=== PATIENT | female | born 1985 ===

== ENCOUNTER 2020-10-12 18:35 | Emergency (ER) | payer OTHER, SELFPAY ==
[2020-10-12 19:09] VITALS: BP 119/70; BP 123/73; PULSE 110; PULSE 93; RESP 16; TEMP 37.1; O2SAT 100; O2SAT 99; BMI 30.2
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
== END 2020-10-12 19:55 | disposition home or self-care (01) ==
PROVIDERS: Emergency Provider Emergency Medicine
DX: S16.1XXA Strain of muscle, fascia and tendon at neck level, initial encounter (principal); V43.52XA Car driver injured in collision with other type car in traffic accident, initial encounter; Y93.89 Activity, other specified; Y92.414 Local residential or business street as the place of occurrence of the external cause; Y99.9 Unspecified external cause status
CPT/HCPCS: 99283

== ENCOUNTER 2021-03-18 11:14 | Outpatient (REF) | payer OTHER, SELFPAY ==
[2021-03-18 11:28] LABS: MANUAL DIFF FLAG NO
[2021-03-18 12:31] LABS: Basophils Percent Auto 0.6 % (0-2); Eosinophils Absolute Auto 0.2 X10*3/uL (0.0-0.4); Eosinophils Percent Auto 3.3 % (0-4); Hematocrit 40.5 % (37.0-47.0); Hemoglobin 13.1 g/dl (12.0-16.0); Imm Gran Abs Auto 0.02 X10*3/uL (0.00-0.03); Imm Gran Pct Auto 0.3 % (0.0-0.4); Lymphocytes Absolute Auto 2.4 X10*3/uL (1.2-4.9); Lymphocytes Percent Auto 35.8 % (20-40); Mean Corpuscular HGB Conc 32.3 g/dl (31.0-35.0); Mean Corpuscular Hemoglobin 29.2 pg (27.0-33.0); Mean Corpuscular Volume 90.2 fL (80.0-98.0); Mean Platelet Volume 10.3 fL (9.4-12.3); Monocytes Absolute Auto 0.5 X10*3/uL (0.1-1.2); Monocytes Percent Auto 7.2 % (2-11); Neutrophils Absolute Auto 3.5 x10*3/uL (2.0-8.3); Neutrophils Percent Auto 52.8 % (45-73); Platelet Count 335 X10*3/uL (160-400); Red Blood Count 4.49 X10*6/uL (4.20-5.50); Red Cell Distribution Width 12.6 % (11.0-16.0); White Blood Count 6.7 X10*3/uL (4.8-10.8)
[2021-03-18 13:10] LABS: Alanine Aminotransferase 18 U/L (0-31); Albumin Level 4.5 g/dL (3.5-5.0); Alkaline Phosphatase 71 U/L (39-117); Anion Gap 15 (12-20); Aspartate Amino Transferase 17 U/L (5-31); Bilirubin Total 0.3 mg/dL (0.0-1.0); Blood Urea Nitrogen 8 mg/dL (9-16); Calcium 9.5 mg/dL (8.4-10.2); Carbon Dioxide 23 mmol/L (22-29); Chloride 107 mmol/L (96-108); Cholesterol 246 mg/dL; Estimated Glomerular Filt Rate > 60; Glucose Random 92 mg/dL (60-115); HDL Cholesterol 49 mg/dL; LDL Cholesterol Calculated 173 mg/dl; Potassium 4.6 mmol/L (3.3-5.1); Sodium 140 mmol/L (135-145); Total Protein 7.9 g/dL (6.5-8.0); Triglycerides 121 mg/dL
[2021-03-18 13:22] LABS: Thyroid Stimulating Hormone 1.48 uIU/mL (0.32-4.0)
== END 2021-03-18 11:15 | disposition home or self-care (01) ==
LOC: HO.LAB 11:14
PROVIDERS: PCP Internal Medicine; Visit Provider Internal Medicine
DX: Z00.00 Encounter for general adult medical examination without abnormal findings (principal); Z13.31 Encounter for screening for depression; K59.00 Constipation, unspecified; R63.5 Abnormal weight gain
CPT/HCPCS: 36415; 80053; 80061; 84443; 85025

== ENCOUNTER 2021-05-16 09:48 | Outpatient (REF) | payer OTHER, SELFPAY ==
[2021-05-16 16:52] LABS: CT PCR NOT DETECTED (Not Detect.); NG PCR NOT DETECTED (Not Detect.)
[2021-05-17 14:19] LABS: BV Int Neg Control Negative (Negative); BV Int Pos Control Positive (Positive)
[2021-05-21 16:42] LABS: HPV mRNA E6/E7 rflx Not Detected (Not Detected)
== END 2021-05-16 09:49 | disposition home or self-care (01) ==
LOC: HO.LAB 09:48
PROVIDERS: PCP Internal Medicine; Visit Provider Advanced Practice Midwife
DX: Z01.411 Encounter for gynecological examination (general) (routine) with abnormal findings (principal); Z11.51 Encounter for screening for human papillomavirus (HPV); R10.2 Pelvic and perineal pain; Z20.2 Contact with and (suspected) exposure to infections with a predominantly sexual mode of transmission
CPT/HCPCS: 87480; 87491; 87510; 87591; 87624; 87660; 88142

== ENCOUNTER 2023-06-18 09:12 | Outpatient (REF) | payer OTHER, SELFPAY ==
[2023-06-18 12:24] LABS: CT PCR NOT DETECTED (Not Detect.); NG PCR NOT DETECTED (Not Detect.)
[2023-06-19 13:08] LABS: BV Int Neg Control Negative (Negative); BV Int Pos Control Positive (Positive)
== END 2023-06-18 09:13 | disposition home or self-care (01) ==
LOC: HO.LNP 09:12
PROVIDERS: PCP Internal Medicine; Visit Provider Advanced Practice Midwife
DX: R10.2 Pelvic and perineal pain (principal); R31.29 Other microscopic hematuria; N89.8 Other specified noninflammatory disorders of vagina; R30.0 Dysuria
CPT/HCPCS: 0353U; 81002; 81025; 87086; 87480; 87510; 87660; 99212

== ENCOUNTER 2023-06-18 09:12 | Outpatient (AMB) | payer OTHER, SELFPAY ==
--- NOTE | 2023-06-18 09:16 | MHC.OFFVIS ---
Vital Signs 06/18/23 09:22 Height 5 ft 2 in Weight 142 lb BMI 26.0 BP 102/60 Intake Visit Reasons: discharge ?/infection Charge Account Authorizer Required: No Information Interpreted: non-clinical & clinical Home Theater Experience Expert: Home Theater Experience Expert Present (Sanjuanita ESCAMILLA) Accompanied by: Self / Same As Patient Allergies No Known Allergies [No Known Allergies*] Allergy (Verified 06/18/23 09:23) Is last menstrual period known: Yes Last menstrual period: 05/28/23 HPI Comments Details: Patient is here today for pain pelvic which begins at the midline and radiates to the left. She reports an increase in discharge and some burning irritation with urination. Currently not sexually active. She is also interested starting control. Seen in [facility] in October for same pain, had a pap and was ordered 3 months of BC, then [facility], she reports she does not have a appointment scheduled for a follow-up there [facility] Medical History (Updated 06/18/23 @ 09:43 by Gladys Ramirez CNM) No known health problems Social History Alcohol intake: current Alcohol intake frequency: holidays/special occasions only Patient Tobacco Use Status: Never used Tobacco Sexual orientation: Straight/Heterosexual Gender identity: Female Female Reproductive History Menstrual Duration of menses: 3-5 days Date of last menstrual period: 05/28/23 Review of Systems Const All systems reviewed & are unremarkable except as noted in HPI and below Physical Exam Vital Signs: Last Vital Signs BP 102/60 06/18/23 09:22 BMI result Body Mass Index 26.0 Const General: cooperative, healthy appearing and no acute distress Orientation/consciousness: patient oriented x3 GI Inspection: Yes normal to inspection Palpation (GI): Soft to palpation and Other GI palpation findings present (Nontender) Rectal Exam - Female: visual inspection normal General: Yes bladder normal to palpation External Female Exam: normal appearance of the urethra Speculum Exam - Vagina: normal appearance of the vagina, normal palpation and normal vaginal discharge Speculum Exam - Cervix: normal appearance of the cervix and normal palpation Bimanual exam- vagina & uterus: normal bimanual exam, normal palpation, uterine size normal, bladder normal to palpation, normal palpation, uterine shape normal and non-tender Bimanual Exam- Adnexa, other: Other (Slightly tender to the left, fullness to the right ? loop of bowel) Neuro General: patient oriented x3 Results AMB Test Urine AMB Test Urine Negative Last Edit by Sanjuanita Albert CMA on 06/18/23 09:49 AMB Urinalysis Dipstick UR Leukocytes Negative Last Edit by Sanjuanita Albert, TRI on 06/18/23 09:51 UR Nitrite Negative Last Edit by Sanjuanita Albert, TRI on 06/18/23 09:51 UR Urobilinogen Normal Last Edit by Sanjuanita Albert, TRI on 06/18/23 09:51 UR Protein Negative Last Edit by Sanjuanita Albert, TRI on 06/18/23 09:51 UR Ph 6.5 Last Edit by Sanjuanita Albert, TRI on 06/18/23 09:51 UR Blood Small Last Edit by Sanjuanita Albert, TRI on 06/18/23 09:51 UR Specific [place] 1.015 Last Edit by Sanjuanita Albert CMA on 06/18/23 09:51 UR Ketone Negative Last Edit by Sanjuanita Albert, TRI on 06/18/23 09:51 UR Bilirubin Negative Last Edit by Sanjuanita Albert, TRI on 06/18/23 09:51 UR Glucose Negative Last Edit by Sanjuanita Albert CMA on 06/18/23 09:51 Assessment & Plan Assessment & Plan (1) Pelvic fullness: Code(s): R19.00 - Intra-abdominal and pelvic swelling, mass and lump, unspecified site Category: Medical (2) Pain in pelvis: Code(s): R10.2 - Pelvic and perineal pain (3) Vaginal discharge: Code(s): N89.8 - Other specified noninflammatory disorders of vagina (4) Dysuria: Code(s): R30.0 - Dysuria Plan Discussed: Workup for pelvic pain dysuria, vaginal discharge, pelvic ultrasound, urinalysis, clean-catch, BV panel, and gonorrhea and chlamydia screening. Defer control consult until her follow-up appointment for the ultrasound with a 30 minute appointment. Advised if she was to become sexually active in the meantime she should use condoms. If any increase in pain or severity to report to the ED for immediate assessment. [facility]. Consider 1 gynecology office verses multiple offices that do not have a shared EMR system for continuity of care. All of her questions and concerns were addressed to the best of my ability and shared decision making. She is agreeable to the plan of care. This note is constructed using voice recognition software. While every effort has been made to ensure accuracy, hand glass cutter errors may have been included. Orders: Orders US pelvic and transvaginal Today R10.2 - Pelvic and perineal pain, R19.00 - Intra-abdominal and pelvic swelling, mass and lump, unspecified site
[2023-06-18 09:22] VITALS: BP 102/60; BMI 26.0
== END 2023-06-18 10:04 | disposition home or self-care (01) ==
PROVIDERS: PCP Internal Medicine; Visit Provider Advanced Practice Midwife
DX: R19.00 Intra-abdominal and pelvic swelling, mass and lump, unspecified site (principal); R10.2 Pelvic and perineal pain; N89.8 Other specified noninflammatory disorders of vagina; R30.0 Dysuria; Z32.02 Encounter for pregnancy test, result negative; R31.29 Other microscopic hematuria
CPT/HCPCS: 99214

== ENCOUNTER 2023-06-25 11:10 | Outpatient (REF) | payer OTHER, SELFPAY ==
--- NOTE | ~2023-06-25 | US_ITS ---
EXAMINATION: US PELVIC AND TRANSVAGINAL CLINICAL INFORMATION: Intra-abdominal swelling. COMPARISON: 09/13/2012, report only. TECHNIQUE: Ultrasound of the pelvis is performed using both transabdominal and transvaginal transducers along with Doppler. Transvaginal imaging is performed due to inadequate visualization transabdominally. FINDINGS: UTERUS: The uterus is anteverted and measures 8.4 x 4.8 x 5.2 cm. The double wall endometrial thickness is 7 mm. The uterus is smooth in contour and has normal myometrial echogenicity. No visible fibroid. ADNEXA: Both ovaries are visualized. There is normal color flow to the adnexa. There is no ovarian torsion. There is no pelvic ascites or fluid collection. Right ovary measures 4.3 x 3.3 x 3.2 cm, for a volume of 23.4 mL, which includes a 3.6 cm collapsing cyst along with a 3 mm area of shadowing calcification in the ovary. Left ovary measures 2.5 x 1.4 x 2.1 cm, for a volume of 3.8 mL. There is a small 7 x 3 x 4 mm hyperechoic focus in the ovary. Small follicular cyst is noted. There is a paraovarian cyst present measuring 1.4 x 1.2 x 1.6 cm. US/US pelvic and transvaginal IMPRESSION: 1. Small hyperechoic foci are seen in both ovaries. A follow-up exam in 3 months is recommended. 2. Incidental note is made of a collapsing right ovarian cyst, small left paraovarian cyst .
== END 2023-06-25 11:11 | disposition home or self-care (01) ==
LOC: HO.US 11:10
PROVIDERS: PCP Internal Medicine; Visit Provider Advanced Practice Midwife
DX: R19.00 Intra-abdominal and pelvic swelling, mass and lump, unspecified site (principal); R10.2 Pelvic and perineal pain
CPT/HCPCS: 76830; 76856

== ENCOUNTER 2023-07-28 08:40 | Outpatient (AMB) | payer OTHER, SELFPAY ==
[2023-07-28 09:09] VITALS: BP 118/60; BMI 26.7
--- NOTE | 2023-07-28 09:09 | MHC.OFFVIS ---
Vital Signs 07/28/23 09:09 Height 5 ft 2 in Weight 146 lb BMI 26.7 BP 118/60 Intake Visit Reasons: Ultra sound follow up/ control consult Home Theater Specialist Required: No Outpatient Physical Therapist Assistant: Outpatient Physical Therapist Assistant Present Allergies No Known Allergies [No Known Allergies*] Allergy (Verified 07/28/23 09:09) Is last menstrual period known: Yes Last menstrual period: 07/17/23 Post menopausal: No HPI Comments Details: Patient is here today for a follow up ultrasound. Her last visit she reported some pelvic pain which is somewhat improved, overall cramping with her menstrual cycle and reports her last cycle was heavy with clots. She does not have any up-to-date blood work on file. And reports today history of migraine with aura, reviewed aura symptoms and she confirms experiencing visual distortions. [facility] Medical History (Updated 07/28/23 @ 09:44 by Gladys Ramirez CNM) Migraine with aura No known health problems Social History Alcohol intake: current Alcohol intake frequency: holidays/special occasions only Patient Tobacco Use Status: Never used Tobacco Sexual orientation: Straight/Heterosexual Gender identity: Female Female Reproductive History Menstrual Date of last menstrual period: 07/17/23 control method: none Date of last pap smear: 05/19/21 (negative) History of abnormal pap smear: Yes (2019 ASCUS, 2014 2012 CIN1) Review of Systems Const All systems reviewed & are unremarkable except as noted in HPI and below Endo Reports no additional complaints Physical Exam Vital Signs: Last Vital Signs BP 118/60 07/28/23 09:09 BMI result Body Mass Index 26.7 Const General: cooperative, healthy appearing and no acute distress Psych Appearance: well kempt Attitude: cooperative Thought process: Normal thought process present Results Reviewed Results Reviewed: [address] [address] Ultrasound Report Signed Patient: Afai Benavides MR#: [id number] : 1985 Acct:[id number] Age/Sex: 37 / F ADM Date: 06/25/23 Loc: HO.US Attending Dr: Gladys Ramirez CNM Ordering Physician: Gladys Ramirez CNM Date of Service: 06/25/23 Procedure(s): US pelvic and transvaginal Accession Number(s): [id number] cc: Keyla Ross MD; Gladys Ramirez CNM~ EXAMINATION: US PELVIC AND TRANSVAGINAL CLINICAL INFORMATION: Intra-abdominal swelling. COMPARISON: 09/13/2012, report only. TECHNIQUE: Ultrasound of the pelvis is performed using both transabdominal and transvaginal transducers along with Doppler. Transvaginal imaging is performed due to inadequate visualization transabdominally. FINDINGS: UTERUS: The uterus is anteverted and measures 8.4 x 4.8 x 5.2 cm. The double wall endometrial thickness is 7 mm. The uterus is smooth in contour and has normal myometrial echogenicity. No visible fibroid. ADNEXA: Both ovaries are visualized. There is normal color flow to the adnexa. There is no ovarian torsion. There is no pelvic ascites or fluid collection. Right ovary measures 4.3 x 3.3 x 3.2 cm, for a volume of 23.4 mL, which includes a 3.6 cm collapsing cyst along with a 3 mm area of shadowing calcification in the ovary. Left ovary measures 2.5 x 1.4 x 2.1 cm, for a volume of 3.8 mL. There is a small 7 x 3 x 4 mm hyperechoic focus in the ovary. Small follicular cyst is noted. There is a paraovarian cyst present measuring 1.4 x 1.2 x 1.6 cm. US/US pelvic and transvaginal IMPRESSION: 1. Small hyperechoic foci are seen in both ovaries. A follow-up exam in 3 months is recommended. 2. Incidental note is made of a collapsing right ovarian cyst, small left paraovarian cyst . Dictated By: Tony Molina MD Signed By: <Electronically signed by Tony Molina MD in OV> 07/01/23 2303 DD/ 1133 TD/TT: Director Oncology: SS Assessment & Plan Assessment & Plan (1) Abnormal ultrasound of ovary: Code(s): R93.5 - Abnormal findings on diagnostic imaging of other abdominal regions, including retroperitoneum Category: Medical (2) Heavy menses: Code(s): N92.0 - Excessive and frequent menstruation with regular cycle Category: Medical Qualifiers: Menorrhagia type: with regular cycle Qualified Code(s): N92.0 - Excessive and frequent menstruation with regular cycle Plan Discussed: Ultrasound findings with hypoechoic area of ovaries, ovarian cyst, unknown etiology possible developing cysts, benign, premalignant or malignancy, no screening test for ovarian cancers, will require follow up in 3 months. 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 Plan CBC and TSH today. Follow up pending results ultrasound to be ordered, return to the office for results in person, consider medication options for cycle control. All of her questions and concerns were addressed to the best of my ability and shared decision making. She is agreeable to the plan of care. This note is constructed using voice recognition software. While every effort has been made to ensure accuracy, trust accounts supervisor errors may have been included. Orders: Orders US pelvic and transvaginal 09/20/23 R93.5 - Abnormal findings on diagnostic imaging of other abdominal regions, including retroperitoneum Thyroid Stimulating Hormone Today N92.0 - Excessive and frequent menstruation with regular cycle, N92.1 - Excessive and frequent menstruation with irregular cycle Complete Blood Count no Diff Today N92.0 - Excessive and frequent menstruation with regular cycle Coding Level of Care Code Est Pt Level 3 (01209) Diagnoses Abnormal ultrasound of ovary R93.5 Menorrhagia with regular cycle N92.0 Menorrhagia type: with regular cycle
== END 2023-07-28 09:41 | disposition home or self-care (01) ==
PROVIDERS: PCP Internal Medicine; Visit Provider Advanced Practice Midwife
DX: R93.5 Abnormal findings on diagnostic imaging of other abdominal regions, including retroperitoneum (principal); N92.0 Excessive and frequent menstruation with regular cycle
CPT/HCPCS: 99213

== ENCOUNTER 2023-07-28 08:40 | Outpatient (REF) | payer OTHER, SELFPAY ==
[2023-07-28 10:47] LABS: Hematocrit 39.7 % (37.0-47.0); Mean Corpuscular HGB Conc 32.7 g/dl (31.0-35.0); Mean Corpuscular Hemoglobin 30.3 pg (27.0-33.0); Mean Corpuscular Volume 92.5 fL (80.0-98.0); Mean Platelet Volume 10.2 fL (9.4-12.3); Platelet Count 342 X10*3/uL (160-400); Red Blood Count 4.29 X10*6/uL (4.20-5.50); Red Cell Distribution Width 12.7 % (11.0-16.0); White Blood Count 7.1 X10*3/uL (4.8-10.8)
[2023-07-28 11:49] LABS: Thyroid Stimulating Hormone 0.82 uIU/mL (0.32-4.0)
== END 2023-07-28 08:41 | disposition home or self-care (01) ==
LOC: HO.LAB 08:40
PROVIDERS: PCP Internal Medicine; Visit Provider Advanced Practice Midwife
DX: N92.1 Excessive and frequent menstruation with irregular cycle (principal); R93.5 Abnormal findings on diagnostic imaging of other abdominal regions, including retroperitoneum; R10.2 Pelvic and perineal pain
CPT/HCPCS: 36415; 84443; 85027; 99212

== ENCOUNTER 2023-10-06 15:33 | Outpatient (REF) | payer OTHER, SELFPAY ==
--- NOTE | ~2023-10-06 | US_ITS ---
EXAMINATION: US PELVIS CLINICAL INFORMATION: Abnormal ultrasound of ovary 06/25/2023, no pain, last menstrual period September 08, 2023. COMPARISON: June 25, 2023 TECHNIQUE: Ultrasound of the pelvis is performed using both transabdominal and transvaginal transducers along with Doppler. Transvaginal imaging is performed due to inadequate visualization transabdominally. FINDINGS: The uterus is anteverted, retroflexed and measures 9.2 x 4.7 x 5.2 cm. Nabothian cysts with echogenic foci characteristic of calcifications. No significant free fluid. Endometrial thickness is 13 mm. Right ovary measures 2.9 x 1.6 x 1.7 cm, volume 4.1 mL. Several echogenic foci within the right ovary are characteristic of tiny calcifications. Left ovary measures 2.7 x 2.1 x 1.6 cm, volume 4.7 mL. 5 x 2 x 4 mm echogenic focus in the left ovary previously measured 7 x 3 x 4 mm. Left paraovarian cyst measures 2.0 x 1.0 x 1.6 cm, previously 1.4 x 1.2 x 1.6 cm. US/US pelvic and transvaginal IMPRESSION: 1. Endometrial thickness is 13 mm. 2. Left paraovarian cyst measures 2.0 cm, previously 1.4 cm. 3. Left ovarian echogenic focus measures 5 mm, previously 7 mm. 4. Redemonstration of small hyperechoic foci in the bilateral ovaries. 5. Recommend follow-up ultrasound in 3 months. Gynecologic consultation recommended to determine further management.
== END 2023-10-06 15:34 | disposition home or self-care (01) ==
LOC: HO.US 15:33
PROVIDERS: PCP Internal Medicine; Visit Provider Advanced Practice Midwife
DX: R93.5 Abnormal findings on diagnostic imaging of other abdominal regions, including retroperitoneum (principal)
CPT/HCPCS: 76830; 76856

== ENCOUNTER 2023-12-28 07:07 | Outpatient (REF) | payer OTHER, SELFPAY ==
[2023-12-28 07:17] LABS: MANUAL DIFF FLAG NO
[2023-12-28 07:40] LABS: Basophils Absolute Auto 0.1 X10*3/uL (0.0-0.2); Basophils Percent Auto 0.6 % (0-2); Eosinophils Absolute Auto 0.3 X10*3/uL (0.0-0.4); Eosinophils Percent Auto 4.2 % (0-4); Hematocrit 38.3 % (37.0-47.0); Hemoglobin 12.5 g/dl (12.0-16.0); Imm Gran Abs Auto 0.03 X10*3/uL (0.00-0.03); Imm Gran Pct Auto 0.4 % (0.0-0.4); Lymphocytes Absolute Auto 2.9 X10*3/uL (1.2-4.9); Lymphocytes Percent Auto 37.5 % (20-40); Mean Corpuscular HGB Conc 32.6 g/dl (31.0-35.0); Mean Corpuscular Hemoglobin 30.3 pg (27.0-33.0); Mean Corpuscular Volume 92.7 fL (80.0-98.0); Mean Platelet Volume 9.9 fL (9.4-12.3); Monocytes Absolute Auto 0.5 X10*3/uL (0.1-1.2); Monocytes Percent Auto 6.1 % (2-11); Neutrophils Percent Auto 51.2 % (45-73); Platelet Count 326 X10*3/uL (160-400); Red Blood Count 4.13 X10*6/uL (4.20-5.50); Red Cell Distribution Width 12.8 % (11.0-16.0); White Blood Count 7.8 X10*3/uL (4.8-10.8)
[2023-12-28 08:29] LABS: Cholesterol 206 mg/dL (<200); HDL Cholesterol 66 mg/dL (>40); LDL Cholesterol Calculated 120 mg/dL (<100); Triglycerides 102 mg/dL (<150)
[2023-12-28 08:30] LABS: Thyroid Stimulating Hormone 1.44 uIU/mL (0.32-4.0)
== END 2023-12-28 07:08 | disposition home or self-care (01) ==
LOC: HO.LAB 07:07
PROVIDERS: PCP Internal Medicine; Visit Provider Internal Medicine
DX: Z00.01 Encounter for general adult medical examination with abnormal findings (principal); E78.00 Pure hypercholesterolemia, unspecified; K59.00 Constipation, unspecified; L71.9 Rosacea, unspecified; M25.511 Pain in right shoulder
CPT/HCPCS: 36415; 80061; 84443; 85025

== ENCOUNTER 2024-01-12 15:31 | Outpatient (AMB) | payer OTHER, SELFPAY ==
--- NOTE | 2024-01-12 15:31 | A.OFFVIS_ITS ---
Intake Visit Reasons: TV Ultra sound follow up Instructional Coach: Instructional Coach Present Allergies No Known Allergies [No Known Allergies*] Allergy (Verified 07/28/23 09:09) Is last menstrual period known: Yes HPI Comments Details: Tele kay visit 3:34-3:42pm. I spent 7 minutes speaking with the patient on the phone plus an additional 5 minutes reviewing the chart and 5 minutes updating the medical record for a total of 17 minutes. Patient presents via phone to discuss: Ultrasound findings due to prior history of HMB and previous left ovarian echogenic foci, since resolved for the last 2 cycles. She does experience an occasional mild discomfort on her left side. [facility] Medical History Migraine with aura No known health problems Social History Alcohol intake: current Alcohol intake frequency: holidays/special occasions only Patient Tobacco Use Status: Never used Tobacco Sexual orientation: Straight/Heterosexual Gender identity: Female Review of Systems Const All systems reviewed & are unremarkable except as noted in HPI and below Endo Reports no additional complaints Physical Exam Const General: cooperative, healthy appearing and no acute distress Psych Appearance: well kempt Attitude: cooperative Thought process: Normal thought process present Telehealth Telehealth Telehealth Platform: Telephone Location of provider rendering services: practice address Location of patient: address on file Patient Identification confirmed using: Name, : Yes Telehealth method: video Patient verbally consented to treatment: Yes Patient verbally consented to billing insurance company: Yes Patient informed of any privacy concerns related to visit: Yes Results Reviewed Results Reviewed: [address] [address] Ultrasound Report Signed Patient: Afia Benavides MR#: [id number] : 1985 Acct:[id number] Age/Sex: 37 / F ADM Date: 10/06/23 Loc: HO.US Attending Dr: Gladys Ramirez CNM Ordering Physician: Gladys Ramirez CNM Date of Service: 10/06/23 Procedure(s): US pelvic and transvaginal Accession Number(s): [id number] cc: Keyla Ross MD; Gladys Ramirez CNM~ EXAMINATION: US PELVIS CLINICAL INFORMATION: Abnormal ultrasound of ovary 06/25/2023, no pain, last menstrual period September 08, 2023. COMPARISON: June 25, 2023 TECHNIQUE: Ultrasound of the pelvis is performed using both transabdominal and transvaginal transducers along with Doppler. Transvaginal imaging is performed due to inadequate visualization transabdominally. FINDINGS: The uterus is anteverted, retroflexed and measures 9.2 x 4.7 x 5.2 cm. Nabothian cysts with echogenic foci characteristic of calcifications. No significant free fluid. Endometrial thickness is 13 mm. Right ovary measures 2.9 x 1.6 x 1.7 cm, volume 4.1 mL. Several echogenic foci within the right ovary are characteristic of tiny calcifications. Left ovary measures 2.7 x 2.1 x 1.6 cm, volume 4.7 mL. 5 x 2 x 4 mm echogenic focus in the left ovary previously measured 7 x 3 x 4 mm. Left paraovarian cyst measures 2.0 x 1.0 x 1.6 cm, previously 1.4 x 1.2 x 1.6 cm. US/US pelvic and transvaginal IMPRESSION: 1. Endometrial thickness is 13 mm. 2. Left paraovarian cyst measures 2.0 cm, previously 1.4 cm. 3. Left ovarian echogenic focus measures 5 mm, previously 7 mm. 4. Redemonstration of small hyperechoic foci in the bilateral ovaries. 5. Recommend follow-up ultrasound in 3 months. Gynecologic consultation recommended to determine further management. Dictated By: Rosita Barrett MD Signed By: <Electronically signed by Rosita Barrett MD in OV> 10/11/23 1544 DD/ 1609 TD/TT: Aged Or Disabled Care Worker: Assessment & Plan Assessment & Plan (1) Abnormal ultrasound of ovary: Code(s): R93.5 - Abnormal findings on diagnostic imaging of other abdominal regions, including retroperitoneum Category: Medical (2) Encounter to discuss test results: Code(s): Z71.2 - Person consulting for explanation of examination or test findings Plan Discussed: Ultrasound findings with left ovarian echogenic focus area decreased from 7 mm to 5 mm, bilateral hypoechoic focus ovarian previously seen, left para ovarian cyst 2 cm, radiologist suggest follow up for 3 months. Ultrasound ordered plan follow up results appointment. Call sooner if any concerns or if pelvic pain increases. All of her questions and concerns were addressed to the best of my ability and shared decision making. She is agreeable to the plan of care. This note is constructed using voice recognition software. While every effort has been made to ensure accuracy, cook ice cream errors may have been included. Orders: Orders US pelvic and transvaginal Today R93.5 - Abnormal findings on diagnostic imaging of other abdominal regions, including retroperitoneum Coding Level of Care Code Tele Est Pt Level 3 (33503) Diagnoses Abnormal ultrasound of ovary R93.5 Encounter to discuss test results Z71.2
== END 2024-01-12 16:25 | disposition home or self-care (01) ==
LOC: HO.HWS 15:31
PROVIDERS: PCP Internal Medicine; Visit Provider Advanced Practice Midwife
DX: R93.5 Abnormal findings on diagnostic imaging of other abdominal regions, including retroperitoneum (principal); Z71.2 Person consulting for explanation of examination or test findings
CPT/HCPCS: 99213

== ENCOUNTER 2024-02-02 15:46 | Outpatient (REF) | payer OTHER, SELFPAY | END 2024-02-02 15:47 | disposition home or self-care (01) | LOC: HO.US 15:46 | PROVIDERS: PCP Internal Medicine; Visit Provider Advanced Practice Midwife | DX: R93.5 Abnormal findings on diagnostic imaging of other abdominal regions, including retroperitoneum (principal) | CPT/HCPCS: 76830; 76856 ==

== ENCOUNTER 2024-04-26 14:24 | Outpatient (AMB) | payer OTHER, SELFPAY ==
--- NOTE | 2024-04-26 14:26 | A.OFFVIS_ITS ---
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 She reports an area on buttock, upper area adjacent to the hip level, itching, painful lesions that have crusted over the last week. She reports exposure to shingles. She denies deeper extensive discomfort in the surrounding tissues, or fever flu-like symptoms. She denies any pelvic pain. [facility] Medical History Migraine with aura No known health problems Social History Alcohol intake: current Alcohol intake frequency: holidays/special occasions only Patient Tobacco Use Status: Never used Tobacco Sexual orientation: Straight/Heterosexual Gender identity: Female Female Reproductive History Menstrual Date of last menstrual period: 04/12/24 Review of Systems Const All systems reviewed & are unremarkable except as noted in HPI and below Endo Reports no additional complaints Physical Exam Const General: cooperative, healthy appearing and no acute distress Skin Other: Crusted scabbed area upper left gluteal fold, no erythema or edema, late stages of healing noted. Psych Appearance: well kempt Attitude: cooperative Thought process: Normal thought process present Results Reviewed Results Reviewed: [place] [address] Ultrasound Report Signed Patient: Afia Benavides MR#: [id number] : 1985 Acct:[id number] Age/Sex: 38 / F ADM Date: 02/02/24 Loc: HO.US Attending Dr: Gladys Ramirez CNM Ordering Physician: Gladys Ramirez CNM Date of Service: 02/02/24 Procedure(s): US pelvic and transvaginal Accession Number(s): [id number] cc: Keyla Ross MD; Gladys Ramirez CNM~ EXAMINATION: US PELVIS CLINICAL INFORMATION: Follow-up left ovary, last menstrual period 01/22/2024. COMPARISON: 10/06/2023, 06/25/2023. TECHNIQUE: Ultrasound of the pelvis is performed using both transabdominal and transvaginal transducers along with Doppler. Transvaginal imaging is performed due to inadequate visualization transabdominally. FINDINGS: The anteverted uterus measures 8.8 x 3.9 x 5.0 cm. Uterus is retroflexed and anteverted. Endometrial thickness is 9 mm. 0.7 cm uterine hypoechoic mass may represent a fibroid and was not appreciated on the prior exam. Small amount of fluid in the endocervical canal. Nabothian cysts. Right ovary measures 2.9 x 2.5 x 1.9 cm, volume 10 mL. 1.2 x 1.4 x 1.3 cm right ovarian cyst is likely simple. There is no specific indication for additional imaging. Tiny echogenic foci within the bilateral ovaries again are characteristic of tiny calcifications. Left ovary measures 2.7 x 1.7 x 2.5 cm, volume 6.0 mL. 1.5 x 1.4 x 1.2 cm left ovarian cyst appears simple, likely physiologic. There is no specific indication for additional imaging. 0.4 x 0.3 x 0.4 cm echogenic lesion in the left ovary, previously 0.5 x 0.2 x 0.4 cm. 1.1 x 0.9 x 1.2 cm left paraovarian cyst, previously 2.0 x 1.0 x 1.6 cm. US/US pelvic and transvaginal IMPRESSION: 1. Endometrium appears heterogeneous with thickness of 9 mm. 2. A 0.7 cm possible fibroid was not appreciated on the prior study. 3. Left paraovarian 1.2 cm cyst, previously 2.0 cm. 4. Redemonstration of 0.4 cm left ovarian echogenic lesion, previously 0.5 cm. 5. Redemonstration of small echogenic foci in the bilateral ovaries, possibly representing small calcifications. 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 Endometrium appears heterogeneous with thickness of 9 mm. 2. A 0.7 cm possible fibroid was not appreciated on the prior study. 3. Left paraovarian 1.2 cm cyst, previously 2.0 cm. 4. Redemonstration of 0.4 cm left ovarian echogenic lesion, previously 0.5 cm. 5. Redemonstration of small echogenic foci in the bilateral ovaries, possibly representing small calcifications. (2) Encounter to discuss test results: Code(s): Z71.2 - Person consulting for explanation of examination or test findings Plan: Discussed ultrasound findings-[place] [address] Ultrasound Report Signed Patient: Afia Benavides MR#: [id number] : 1985 Acct:[id number] Age/Sex: 38 / F ADM Date: 02/02/24 Loc: HO.US IMPRESSION: 1. Endometrium appears heterogeneous with thickness of 9 mm. 2. A 0.7 cm possible fibroid was not appreciated on the prior study. 3. Left paraovarian 1.2 cm cyst, previously 2.0 cm. 4. Redemonstration of 0.4 cm left ovarian echogenic lesion, previously 0.5 cm. 5. Redemonstration of small echogenic foci in the bilateral ovaries, possibly representing small calcifications. (3) Fibroid: Code(s): D21.9 - Benign neoplasm of connective and other soft tissue, unspecified Category: Medical Plan: Counseled re: Leiomyoma: common pelvic neoplasm. Differential diagnosis-may include but not limited to- leiomyosarcoma which is a rare uterine sarcoma 3- 7/100,000, difficult to distinguish from fibroids on ultrasound from uterine sarcoma's. Unlikely any single test will have a highly positive predictive value. Hysterectomy is not recommended for sole purpose of excluding malignant neoplasm. Consult for surgical exploration, medical treatment, other treatments, verses expectant management, pros and cons, risks and benefits. Expectant management follow up in 6 months, then yearly for stability. Patient prefers to proceed with expectant management. Report any AUB, pelvic pressure, bloating, or pain. Referral to MD if indicated for level of care if indicated. (4) Skin lesion: Code(s): L98.9 - Disorder of the skin and subcutaneous tissue, unspecified Category: Medical Plan Completely dried over scabbed and healing lesion unable to culture. If lesions occur again to come in promptly so that sampling of fluids can be obtained. Discuss possibilities of what origin cause maybe viral or bacterial. The patient expressed understanding and agreement with the plan of care. All of her questions and concerns were addressed to the best of my ability. Total time I personally spent on visit and management today: ?30 minutes. Time spent included review of pertinent office notes in the electronic health record; review of laboratory and imaging results; review of personal family medical history; performing physical exam; discussing diagnosis and plan of care with the patient; documenting the encounter in the EMR. This note is constructed using voice recognition software. While every effort has been made to ensure accuracy, gauntlet pairer errors may have been included. Orders: Orders US pelvic and transvaginal 08/14/24 D21.9 - Benign neoplasm of connective and other soft tissue, unspecified, R93.5 - Abnormal findings on diagnostic imaging of other abdominal regions, including retroperitoneum HSV I and II,[facility] L98.9 - Disorder of the skin and subcutaneous tissue, unspecified Coding Level of Care Code Est Pt Level 3 (61083) Diagnoses Abnormal ultrasound of ovary R93.5 Encounter to discuss test results Z71.2 Fibroid D21.9 Skin lesion L98.9
== END 2024-04-26 15:26 | disposition home or self-care (01) ==
PROVIDERS: PCP Internal Medicine; Visit Provider Advanced Practice Midwife
DX: R93.5 Abnormal findings on diagnostic imaging of other abdominal regions, including retroperitoneum (principal); Z71.2 Person consulting for explanation of examination or test findings; D21.9 Benign neoplasm of connective and other soft tissue, unspecified; L98.9 Disorder of the skin and subcutaneous tissue, unspecified
CPT/HCPCS: 99213

== ENCOUNTER → 2024-04-26 14:24 | Outpatient (BNVA) | payer OTHER, SELFPAY | PROVIDERS: PCP Internal Medicine; Visit Provider Advanced Practice Midwife | DX: Z71.2 Person consulting for explanation of examination or test findings (principal); D25.9 Leiomyoma of uterus, unspecified; N83.292 Other ovarian cyst, left side; L98.9 Disorder of the skin and subcutaneous tissue, unspecified | CPT/HCPCS: 99212 ==

== ENCOUNTER 2024-08-14 12:26 | Outpatient (REF) | payer OTHER, SELFPAY ==
--- NOTE | ~2024-08-14 | US_ITS ---
CLINICAL HISTORY: D21.9 - Benign neoplasm of connective and other soft tissue, unspecified --- Additi onal Notes or Special Instructions: 6 months stability check US pelvis transabdominal and transvaginal with Doppler Comparison: None Findings: Transabdominal scanning performed for overall anatomy. Transvaginal scanning performed for additional detail. Uterus is 9.1 cm length. 9 x 8 x 9 mm fibroid of the fundus, previously 5 x 5 x 7 mm. 9 x 5 x 6 mm fibroid of the fundus. Endometrium 17 mm thickness. Right ovary 3.9 x 2.5 x 1.9 cm. 2.1 x 1.5 x 1.6 cm complex cyst. Left ovary 2.7 x 1.7 x 2.5 cm. 1.4 x 1.1 x 2.2 cm para ovarian cyst. Normal color Doppler with arterial/venous spectral tracing of both ovaries. No free fluid. IMPRESSION: Uterine fibroids. Thickening of the endometrium. Complex cyst of the right ovary. Ultrasound follow-up in 2 months as indicated. This document has been electronically signed by: Katie Stanley MD on 08/14/2024 16:05:28
== END 2024-08-14 12:27 | disposition home or self-care (01) ==
LOC: HO.US 12:26
PROVIDERS: PCP Internal Medicine; Visit Provider Advanced Practice Midwife
DX: D21.9 Benign neoplasm of connective and other soft tissue, unspecified (principal); R93.5 Abnormal findings on diagnostic imaging of other abdominal regions, including retroperitoneum; K21.9 Gastro-esophageal reflux disease without esophagitis
CPT/HCPCS: 76830; 76856

== ENCOUNTER → 2024-08-14 12:27 | Outpatient (BNV) | payer OTHER, SELFPAY | PROVIDERS: PCP Internal Medicine; Visit Provider Nuclear Medicine | DX: D25.9 Leiomyoma of uterus, unspecified (principal); N85.00 Endometrial hyperplasia, unspecified; N83.201 Unspecified ovarian cyst, right side | CPT/HCPCS: 76830; 76856 ==

== ENCOUNTER 2024-08-30 12:29 | Outpatient (AMB) | payer OTHER, SELFPAY ==
[2024-08-30 12:40] VITALS: BP 94/62; BMI 28.0
--- NOTE | 2024-08-30 12:40 | A.OFFVIS_ITS ---
Vital Signs 08/30/24 12:40 Height 5 ft 1 in Weight 148 lb 2 oz BMI 28.0 BP 94/62 Blood Pressure Location Lt brachial Position Sitting Intake Visit Reasons: Ultrasound follow up Intake Note: pt denies any pelvic pain Denial Management Representative Required: No Information Interpreted: clinical only Meter Reader Inspector: Meter Reader Inspector Present Allergies No Known Allergies (No Known Allergies*) Allergy (Verified 08/30/24 12:44) Medication List - Last Reconciled 08/30/24 by Binta Montejo LPN naproxen (EC-Naprosyn) 500 mg PO BID Is last menstrual period known: Yes Last menstrual period: 08/24/24 Patient : No Do you need a note to return to daycare/school/sports/work: No HPI Comments Details: Patient is here today for a follow up pelvic ultrasound. She denies any pelvic pain. [facility] Medical History Skin lesion Fibroid Migraine with aura No known health problems Social History Alcohol intake: current Alcohol intake frequency: holidays/special occasions only Patient Tobacco Use Status: Never used Tobacco Patient : No Sexual orientation: Straight/Heterosexual Gender identity: Female Female Reproductive History Menstrual Duration of menses: 3-5 days Date of last menstrual period: 08/24/24 control method: none Total pregnancies: 0 Review of Systems Const All systems reviewed & are unremarkable except as noted in HPI and below Endo Reports no additional complaints Physical Exam Vital Signs: Last Vital Signs BP 94/62 08/30/24 12:40 BMI result Body Mass Index 28.0 Const General: cooperative, healthy appearing and no acute distress Psych Appearance: well kempt Attitude: cooperative Thought process: Normal thought process present Results Reviewed Results Reviewed: [address] [address] Ultrasound Report Signed Patient: Afia Benavides MR#: [id number] : 1985 Acct:[id number] Age/Sex: 38 / F ADM Date: 08/14/24 Loc: HO.US Attending Dr: Gladys Ramirez CNM Ordering Physician: Gladys Ramirez CNM Date of Service: 08/14/24 Procedure(s): US pelvic and transvaginal Accession Number(s): [id number] cc: Keyla Ross MD; Gladys Ramirez CNM~ CLINICAL HISTORY: D21.9 - Benign neoplasm of connective and other soft tissue, unspecified --- Additional Notes or Special Instructions: 6 months stability check US pelvis transabdominal and transvaginal with Doppler Comparison: None Findings: Transabdominal scanning performed for overall anatomy. Transvaginal scanning performed for additional detail. Uterus is 9.1 cm length. 9 x 8 x 9 mm fibroid of the fundus, previously 5 x 5 x 7 mm. 9 x 5 x 6 mm fibroid of the fundus. Endometrium 17 mm thickness. Right ovary 3.9 x 2.5 x 1.9 cm. 2.1 x 1.5 x 1.6 cm complex cyst. Left ovary 2.7 x 1.7 x 2.5 cm. 1.4 x 1.1 x 2.2 cm para ovarian cyst. Normal color Doppler with arterial/venous spectral tracing of both ovaries. No free fluid. IMPRESSION: Uterine fibroids. Thickening of the endometrium. Complex cyst of the right ovary. Ultrasound follow-up in 2 months as indicated. 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 Transvaginal scanning performed for additional detail. Uterus is 9.1 cm length. 9 x 8 x 9 mm fibroid of the fundus, previously 5 x 5 x 7 mm. 9 x 5 x 6 mm fibroid of the fundus. Endometrium 17 mm thickness. Right ovary 3.9 x 2.5 x 1.9 cm. 2.1 x 1.5 x 1.6 cm complex cyst. Left ovary 2.7 x 1.7 x 2.5 cm. 1.4 x 1.1 x 2.2 cm para ovarian cyst. Normal color Doppler with arterial/venous spectral tracing of both ovaries. No free fluid. She reports her cycles was after her ultrasound completed. Advised to report any pelvic pain. Discussed: Complex ovarian cyst, which is often benign, and most resolve on their own overtime. Some develop into premalignant or malignant tumors. Limitations of testing for diagnostic purposes. Further monitoring and evaluation is recommended with US, possible CT, or MRI study. If persists, or is indicated (Ca-125, Carbohydrate Antigen 19-9, & Carcinoembryonic Antigen) labs will be ordered and referral to [facility] or general gynecology for MD care if indicated for possible surgical consult. Ultrasound follow up to be scheduled September. Follow up in person for test results. All of her questions and concerns were addressed to the best of my ability and shared decision making. She is agreeable to the plan of care. This note is constructed using voice recognition software. While every effort has been made to ensure accuracy, research group director errors may have been included. Orders: Orders US pelvic and transvaginal 10/16/24 N83.291 - Other ovarian cyst, right side Coding Level of Care Code Est Pt Level 3 (00208) Diagnoses Complex cyst of right ovary N83.291
== END 2024-08-30 13:27 | disposition home or self-care (01) ==
LOC: HO.HWS 12:29
PROVIDERS: PCP Internal Medicine; Visit Provider Advanced Practice Midwife
DX: N83.291 Other ovarian cyst, right side (principal)
CPT/HCPCS: 99213

== ENCOUNTER → 2024-08-30 12:29 | Outpatient (BNVA) | payer OTHER, SELFPAY | PROVIDERS: PCP Internal Medicine; Visit Provider Advanced Practice Midwife | DX: N83.291 Other ovarian cyst, right side (principal) | CPT/HCPCS: 99212 ==